=== PATIENT | male | born 1995 | race Caucasian/White ===

== ENCOUNTER 2018-09-30 18:16 | Emergency (ER) | payer BC, SELFPAY ==
[2018-09-30 18:17] VITALS: BP 125/79; PULSE 99; RESP 16; TEMP 37.1; O2SAT 96; BMI 25.2
--- NOTE | 2018-09-30 18:26 | ED.RN ---
PT REFUSES WORKER'S COMP. PEPPER, TRASH HAULER AWARE AND STATES THERE IS NO NEED TO CALL CORPORATE CARE IN.
--- NOTE | 2018-09-30 18:29 | ED.VISSUMM ---
- ER Visit Summary Date of Service: 09/30/18 Chief Complaint: Right hand injury History of Present Illness: The patient is a 23 M who states that he was at work today on his way to the bathroom he slipped and fell. He attempted to brace himself by making a fist and contacted the ground. He notes swelling and bruising and pain over the right long ring and little finger MCP joints. He notes an abrasion over the ring MCP joint. He is right-handed. Unknown last tetanus. Physical Examination: Afebrile vital signs are stable Gen: Well-nourished well-developed Head: Normocephalic atraumatic Eyes: Perrl EOMI ENT: TMs clear no rhinorrhea moist mucous membranes Neck: Supple no lymphadenopathy no JVD nontender CVS: Regular rate rhythm no murmurs normal S1-S2 Respiratory: No distress clear to auscultation bilaterally chest nontender Abdomen: Soft nontender nondistended normal bowel sounds no masses Back: Nontender Extremity: There is a hematoma over the dorsum of the right hand at the MCP joints of the long ring and little finger. There is a 1.5 cm oval abrasion/skin tear of the ring fingers MCP joint. No significant malrotation. Normal tendon function. Skin: Normal color no rash Neuro: alert orientated ?3 CN II-XII intact normal strength sensation Psych: Normal affect normal mood Test Results: X-rays of the hand were obtained. Emergency Department Course and Treatment: Wound was cleansed and dressed. Tetanus updated with Adacel. Impression: 1. Right hand hematoma and abrasion 2. Tetanus update This note was generated with [employer] dictation software. It may contain incorrect words, spelling, and punctuation that were not noted in review of the chart prior to signing ED Disposition - Plan for ED Patient: Disposition: Home or Assisted Living Instructions: ED Hematoma Referrals: Edison Stafford MD [STAFF PHYSICIAN] - 10-14 Days if not better
[2018-09-30] MEDS: Diphth,Pertuss(Acell),Tet Vac 0.5 ML Vial IM (18:34)
--- NOTE | 2018-09-30 18:50 | RAD_ITS ---
STUDY: X-RAY - RIGHT HAND REASON FOR EXAM: Male, 23 years old. Fall and fourth digit pain TECHNIQUE: 3 view(s) of the hand. COMPARISON: None. FINDINGS: Normal radiocarpal articulation. Normal distal radioulnar joint. Normal visualized carpal bones. Normal carpal articulations Normal carpometacarpal articulation of the thumb. Normal second through fifth carpometacarpal joints. Normal metacarpi. Normal metacarpophalangeal joint of the thumb. Normal interphalangeal joint of the thumb. Normal proximal and distal phalanges of the thumb. Normal metacarpophalangeal joints of the second through fifth fingers. Normal proximal and distal interphalangeal joints of the second through fifth fingers. Normal phalanges of the second through fifth fingers. The soft tissue structures are unremarkable. RAD/Hand Min 3 Views IMPRESSION: No acute osseous injury is evident. Electronically Signed: Tomás Sanders MD at 19:06 EDT Tel , Service support ,
--- NOTE | 2018-09-30 19:10 | ED.RN ---
PT SAID HE DID NOT WANT THIS UNDER WORKERS COMP
[2018-09-30 19:11] VITALS: BP 110/71; PULSE 78; RESP 18; O2SAT 99
== END 2018-09-30 19:12 | disposition home or self-care (01) ==
PROVIDERS: Emergency Provider Emergency Medicine
DX: S60.031A Contusion of right middle finger without damage to nail, initial encounter (principal); S60.041A Contusion of right ring finger without damage to nail, initial encounter; S60.051A Contusion of right little finger without damage to nail, initial encounter; S61.214A Laceration without foreign body of right ring finger without damage to nail, initial encounter; S60.414A Abrasion of right ring finger, initial encounter; W01.0XXA Fall on same level from slipping, tripping and stumbling without subsequent striking against object, initial encounter; Y93.9 Activity, unspecified; Y92.9 Unspecified place or not applicable; Z23 Encounter for immunization; Z72.0 Tobacco use
CPT/HCPCS: 73130; 90471; 90715; 99282

== ENCOUNTER 2018-11-25 15:26 | Emergency (ER) | payer BC, SELFPAY ==
[2018-11-25 15:27] VITALS: BP 122/66; PULSE 105; RESP 17; TEMP 36.9; O2SAT 97; BMI 25.0
--- NOTE | 2018-11-25 16:04 | ED.DCSUM_ITS ---
- ER Visit Summary Date of Service: 11/25/18 Chief Complaint: Headache, coughed up blood today History of Present Illness: The patient is a 23 M who states he has had a headache for the past 3 days. He has a pounding on the left side of his head. It does not radiate. Nothing makes it better or worse. He denies any visual changes. No falls or trauma. He took nothing for this at home. He does have a history of migraine headaches. He states today that he coughed up blood. It was blackish and red and mixed in with his sputum. He denies any fevers or any other symptoms. He is a smoker. Physical Examination: Vital signs reviewed. HEENT exam unremarkable. Heart is regular rate and rhythm without murmurs. Lungs are clear to auscultation. Abdomen is soft and nontender. Extremities reveal no edema. Skin exam normal. Neurologic exam normal. Test Results: Chest x-ray normal Emergency Department Course and Treatment: The patient's neurologic exam is unremarkable. I do not feel he needs a head scan at this time. Chest x-ray is normal. I am not quite sure what this hemoptysis is coming from but he can follow-up as an outpatient. He was given Reglan, Benadryl and Toradol and feels much better. Patient be discharged with naproxen for pain. He will follow-up with his PCP Treatment Plan: [] Disposition: Discharge Impression: Headache, reported hemoptysis This note was generated with [employer] dictation software. It may contain incorrect words, spelling, and punctuation that were not noted in review of the chart prior to signing ED Disposition - Plan for ED Patient: Referrals: Care Physician,No Primary [Primary Care Provider] -
--- NOTE | 2018-11-25 16:55 | RAD_ITS ---
STUDY: X-RAY CHEST REASON FOR EXAM: Male, 23 years old. Coughing up blood TECHNIQUE: PA and lateral views of the chest. COMPARISON: None. FINDINGS: The lungs are hyperinflated. There is no demonstrated pleural abnormality. Normal size heart. Normal mediastinum and kamini. Normal visualized pulmonary arteries. Normal visualized aortic arch and descending thoracic aorta. Normal visualized thoracic spine. Normal visualized ribs, clavicles, and shoulders. There is no demonstrated abnormality of the visualized soft tissue structures of the upper abdomen. RAD/Chest PA and Lateral IMPRESSION: The lungs are hyperinflated. There is no evidence of focal infiltrate. Electronically Signed: Juliann Wright MD at 17:18 EDT Tel , Service support ,
[2018-11-25] MEDS: 0.9% Normal Saline 1,000 ML 999 ML IV (16:57)
[2018-11-25] MEDS: Metoclopramide 10 MG/2 ML Vial IV (16:57)
[2018-11-25] MEDS: DiphenhydrAMINE 50 MG/ML Syringe 25 MG IV (16:57)
[2018-11-25 17:13] VITALS: RESP 16
[2018-11-25] MEDS: Ketorolac 30 MG/ML Syringe IV (18:20)
--- NOTE | 2018-11-25 18:51 | ED.DEP ---
ED Disposition - Plan for ED Patient: Disposition: Home or Assisted Living Instructions: HEADACHE, Unspecified Prescriptions: Naproxen [Naprosyn] 500 mg PO BID PRN #20 tab Prescription Printed Referrals: Care Physician,No Primary [Primary Care Provider] -
[2018-11-25 19:01] VITALS: PULSE 94; RESP 17; O2SAT 97
== END 2018-11-25 19:02 | disposition home or self-care (01) ==
PROVIDERS: Emergency Provider Emergency Medicine
DX: R51 Headache (principal); R04.2 Hemoptysis; G43.909 Migraine, unspecified, not intractable, without status migrainosus; G40.909 Epilepsy, unspecified, not intractable, without status epilepticus; Z79.899 Other long term (current) drug therapy; F17.200 Nicotine dependence, unspecified, uncomplicated
CPT/HCPCS: 71046; 96361; 96374; 96375; 99285; J7030

== ENCOUNTER 2018-11-26 11:00 | Emergency (ER) | payer BC, SELFPAY ==
[2018-11-25 15:27] VITALS: BMI 25.0
[2018-11-26 11:02] VITALS: BP 127/71; PULSE 85; RESP 16; TEMP 36.7; O2SAT 96; BMI 25.0
--- NOTE | 2018-11-26 11:37 | ED.DCSUM_ITS ---
History of Present Illness Informant: Patient Onset: Today Context: Sudden Onset Timing: Lasts - A few minutes Quality: Shaking Location: Entire body Current Severity: Mild Maximum Severity: Severe Worsened by: Nothing Relieved by: Nothing Associated Symptoms: denies Narrative: 23-year-old male history of seizure disorder presents to the emergency department with a seizure. Patient has a known seizure disorder was seeing a neurologist and being prescribed Keppra but has not taken it in about 2 years but had a seizure yesterday and today and was sent home from work and states he cannot afford to not be at work and would like a prescription for Keppra. He denies any other review of systems at this time. Prior similar symptoms: No Recent Illness/Hospitalization: No <Bhargav Rodríguez - Last Filed: 11/26/18 11:37> <Jerzy Gomez - Last Filed: 11/26/18 12:46> Chief Complaint: Seizure Past Medical History Prior records reviewed: Yes Past Medical History: - - Seizure disorder, migraines Surgical History: no surgical history Lives: Alone Smoking Status: Current every day smoker Alcohol: Occasional Drugs: None <Bhargav Rodríguez - Last Filed: 11/26/18 11:37> <Jerzy Gomez - Last Filed: 11/26/18 12:46> - Allergies and Home Meds Allergies/Adverse Reactions: Allergies venom-honey bee [bee venom (honey bee)] Allergy (Verified 11/25/18 15:26) Anaphylaxis DAIRY Allergy (Uncoded 11/25/18 15:26) Shortness of breath MOSQUITO Allergy (Uncoded 11/25/18 15:26) Swelling Primary Care Physician: Care Physician,No Primary [Primary Care Provider] - Review of Systems All systems negative except as indicated General: Denies: Chills, Fever Neurological: Denies: Headache, Weakness, Parasthesia, Numbness <Bhargav Rodríguez - Last Filed: 11/26/18 11:37> Physical Exam Vital Signs/Narrative: Vital Signs Temp Pulse Resp BP Pulse Ox 11/26/18 11:02 98.1 F 85 16 127/71 H 96 Inital Vital Signs reviewed: Yes General: Well nourished, Well developed, No Acute Distress Head: Normocephalic, Atraumatic Eyes: Perrl, EOMI ENT: Moist mucous membranes, - - Airway. No tongue injury Neck: Supple, Nontender Cardiovascular: Regular rate, Regular rhythm Respiratory: No distress, CTA bilaterally, Chest nontender Abdomen: Soft, Nontender, Nondistended, Normal bowel sounds, No masses Back: Nontender Extremities: Nontender, No edema Skin: Normal color, No rash Neurological: Alert, Oriented x3, Cranial nerves II-XII grossly intact, Normal Strength, Normal Sensation, Normal Gait Psychological: Normal affect <Bhargav Rodríguez - Last Filed: 11/26/18 11:37> Vital Signs/Narrative: Vital Signs Temp Pulse Resp BP Pulse Ox 11/26/18 11:02 98.1 F 85 16 127/71 H 96 <Jerzy Gomez - Last Filed: 11/26/18 12:46> Diagnostic/Tx/Re-eval - Medical Decision Making Patient presents requesting a refill of his Keppra as he has a known seizure disorder has been seen by neurologist for years but has not taken any of his medicine in 2 years and had a seizure today and yesterday. We will refill Keppra he was given the thousand milligrams loading dose here will be prescribed 500 mg twice a day and will be referred back to his neurologist <Bhargav Rodríguez - Last Filed: 11/26/18 11:37> - Medical Decision Making Evaluate this patient with our physician fleet administrative assistant ABDIFATAH. Gentleman with known seizure disorder currently not taking his antiseizure medication Keppra because he is out of the prescription. Reportedly had a se izure today and yesterday. Vital signs are stable afebrile. Patient is in no distress. His exam is normal. HEENT exam normal. Lungs are clear. Heart regular rhythm no murmur. Abdomen soft nontender. Neurologically is awake and alert. Moving all 4 extremities. Neurovascularly intact. Impression: 1. Recurrent seizures with a history of seizure disorder 2. Noncompliant with medication <Jerzy Gomez - Last Filed: 11/26/18 12:46> ED Disposition <Bhargav Rodríguez - Last Filed: 11/26/18 11:37> <Jerzy Gomez - Last Filed: 11/26/18 12:46> - Plan for ED Patient: Disposition: Home or Assisted Living Diagnosis: Seizure Instructions: SEIZURE, Recurrent [Adult] Prescriptions: levETIRAcetam tablet [Keppra tablet] 500 mg PO BID #60 tab Prescription Printed Referrals: Care Physician,No Primary [Primary Care Provider] -
[2018-11-26] MEDS: levETIRAcetam 1,000 MG Tablet 1000 MG PO (11:56)
[2018-11-26 12:46] VITALS: BP 123/67; PULSE 68; RESP 16; O2SAT 98
== END 2018-11-26 12:48 | disposition home or self-care (01) ==
PROVIDERS: Emergency Provider Physician Assistant Medical
DX: G40.909 Epilepsy, unspecified, not intractable, without status epilepticus (principal); Z91.14 Patient's other noncompliance with medication regimen; G43.909 Migraine, unspecified, not intractable, without status migrainosus; Z79.899 Other long term (current) drug therapy; F17.200 Nicotine dependence, unspecified, uncomplicated
CPT/HCPCS: 99284